=== PATIENT | male | born 1965 | race Caucasian/White ===

== ENCOUNTER 2017-08-22 11:32 | Emergency (ER) | payer OTHER ==
[~2017-08-22] VITALS: Ht 172.7 cm; Wt 149.7 kg
[2017-08-22 12:47] VITALS: BP 156/80
[2017-08-22] MEDS ORDERED: IBUP-1060 PO (12:51)
[2017-08-22] MEDS ORDERED: CYCL10TA2 PO (12:51)
--- NOTE | 2017-08-22 12:51 | PHYS DOC ---
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 He states that his leg stopped moving and his body continued to go forward. He states that he did not have significant back pain or discomfort until later last night and into today. He denies any numbness or tingling down to his lower extremity. He denies any loss of bowel or bladder. Patient did state he take ibuprofen for the pain and discomfort with minimal relief. Review of Systems Review of Systems Constitutional: Denies fever or chills [] Eyes: Denies change in visual acuity, redness, or eye pain [] HENT: Denies nasal congestion or sore throat [] Respiratory: Denies cough or shortness of breath [] Cardiovascular: No additional information not addressed in HPI [] GI: Denies abdominal pain, nausea, vomiting, bloody stools or diarrhea [] : Denies dysuria or hematuria [] Musculoskeletal: Lower back pain denies joint pain [] Integument: Denies rash or skin lesions [] Neurologic: Denies headache, focal weakness or sensory changes [] Endocrine: Denies polyuria or polydipsia [] Allergies Allergies Allergies Coded Allergies Type Severity Reaction Last Updated Verified No Known Drug Allergies 08/22/17 No Physical Exam Physical Exam Constitutional: Well developed, well nourished, no acute distress, non-toxic appearance. [] HENT: Normocephalic, atraumatic, bilateral external ears normal, oropharynx moist, no oral exudates, nose normal. [] Eyes: PERRLA, EOMI, conjunctiva normal, no discharge. [] Neck: Normal range of motion, no tenderness, supple, no stridor. [] Cardiovascular:Heart rate regular rhythm, no murmur [] Lungs & Thorax: Bilateral breath sounds clear to auscultation [] Skin: Warm, dry, no erythema, no rash. [] Back: No thoracic spine or lumbar spine tenderness, no crepitus, deformities or step-offs noted. Patient did have tenderness in the right lower back, left lower back area. Extremities: No tenderness, no cyanosis, no clubbing, ROM intact, no edema. Peripheral pulses was 2+ cap refill brisk less than 2 seconds. Patient with equal strength noted bilaterally. Neurologic: Alert and oriented X 3, normal motor function, normal sensory function, no focal deficits noted. [] Psychologic: Affect normal, judgement normal, mood normal. [] Current Patient Data Vital Signs Vital Signs Date Time Temp Pulse Resp B/P (MAP) Pulse Ox O2 Delivery O2 Flow Rate FiO2 08/22/17 12:47 156/80 (105) 08/22/17 11:47 97.9 96 18 97 Room Air 97.9 EKG EKG [] Radiology/Procedures Radiology/Procedures [] Course & Med Decision Making Course & Med Decision Making Pertinent Labs and Imaging studies reviewed. (See chart for details) Patient will be discharged home with ibuprofen 800 mg every 8 hours to take with food. He was also provided with a prescription for Flexeril which she was instructed will cause drowsiness do not take any be alert and oriented. Patient was also recommended ice packs on 20 minutes off 20 minutes several times a day. He was recommended to follow-up with work comp physician. Signs symptoms to return back to emergency department as provided. Patient agrees with discharge instructions, treatment regimens and follow-up recommendations. All questions and concerns were answered at patient's bedside. Dragon Disclaimer Dragon Disclaimer This electronic medical record was generated, in whole or in part, using a voice recognition dictation system. Departure Departure Impression: Primary Impression: Back pain Disposition: 01 HOME, SELF-CARE Condition: STABLE Referrals: NO PCP (PCP) [facility] Patient Instructions: Back Pain, Adult, [id number] Additional Instructions: Activity as tolerated. Medication as prescribed. Ibuprofen 800 mg every 8 hours with food stop taking few develop an upset stomach. Flexeril as a muscle relaxer do not take any be alert and oriented. Ice packs on 20 minutes off 20 minutes several times a day. No lifting over 10 pounds for the next 7 days. Follow-up with your work comp physician or primary care physician in the next 7- 10 days if he continued have pain and discomfort. Return back to emergency prior signs symptoms of become worse. Scripts Cyclobenzaprine Hcl (CYCLOBENZAPRINE HCL) 10 Mg Tablet 1 TAB PO TID Y for MUSCLE SPASMS, #30 TAB Prov: MATA THORNTON APRN 08/22/17 Ibuprofen (IBUPROFEN) 800 Mg Tablet 800 MG PO PRN Q6HRS Y for INFLAMMATION, #90 TAB Prov: MATA THORNTON APRN 08/22/17 Problem Qualifiers Primary Impression: Back pain Back pain location: low back pain Chronicity: acute Back pain laterality: unspecified Sciatica presence: without sciatica Qualified Codes: M54.5 - Low back pain MATA THORNTON APRN Aug 22, 2017 12:51
== END 2017-08-22 12:55 | disposition home or self-care (01) ==
LOC: ER 11:32
DX: M54.5 Low back pain (principal); M19.90 Unspecified osteoarthritis, unspecified site; E11.9 Type 2 diabetes mellitus without complications; E78.00 Pure hypercholesterolemia, unspecified; I10 Essential (primary) hypertension
CPT/HCPCS: 99283